=== PATIENT | female | born 1985 | race Two or more races ===

== ENCOUNTER 2017-04-25 15:26 | Emergency (ER) | payer MEDICAID ==
[~2017-04-25] VITALS: Ht 162.6 cm; Wt 57.6 kg
[~2017-04-25 15:26] MED LIST: REGLAN5 MG ORAL
[2017-04-25] MEDS ORDERED: HYDROcodone/Acetamin 7.5/325 tab ORAL ONE (16:00)
--- NOTE | 2017-04-25 16:04 | Emergency Room Report ---
History of Present Illness General Chief Complaint: To Be Triaged Present Illness HPI 32 YO Female presents to the ED C/O left wrist pain and right knee and thigh pain s/p mechanical fall while walking out side of her house just [employer]. pt. reports open wound, does not know when her last Tetanus vaccination was. pt. reports pain as 10/10 in severity localized and exacerbated with bending the right knee, standing, walking or palpation. pt. reports taking Amoxicillin and Mooers as she just had tooth removed two days ago. Denies fevers or chills. Pt. reports decreased oral intake due to recent oral procedure. Denies numbness tingling or loss of sensation or gross motor movements of the extremities, incontinence of bowel or bladder. Denies CP, Palpitations, LOC, AMS, dizziness, Changes in Vision, Sensation, paresthesias, or a sudden severe headache. Allergies: Coded Allergies: No Known Allergies (Unverified , 12/23/14) Patient History Past Medical History: see triage record Past Surgical History: none Pertinent Family History: none Reviewed Nursing Documentation: PMH: Agreed, PSxH: Agreed Review of Systems All Other Systems: negative except mentioned in HPI Physical Exam Sp02 EP Interpretation: reviewed, normal General Appearance: alert, GCS 15, non-toxic, mild distress Head: normocephalic, atraumatic Eyes: bilateral eye normal inspection, bilateral eye PERRL ENT: hearing grossly normal, normal voice Neck: full range of motion, no meningismus, no bony tend Respiratory: chest non-tender, lungs clear, normal breath sounds, speaking full sentences Cardiovascular #1: regular rate, rhythm, no edema, normal capillary refill Musculoskeletal: back normal, gait/station normal, normal range of motion, tender - LEft wrist, right knee, and lateral thigh. swelling noted only on the left wrist, with abrasion on back of hand. Neurologic: alert, oriented x3, responsive, motor strength/tone normal, sensory intact, speech normal, grossly normal Psychiatric: judgement/insight normal Skin: normal color, no rash, warm/dry, well hydrated, abrasions - back of the left hand. Lymphatic: no adenopathy Medical Decision Making PA Attestation Dr. schaefer is my supervising Physician whom patient management has been discussed with. Diagnostic Impression: Primary Impression: Left wrist sprain Qualified Codes: S63.502A - Unspecified sprain of left wrist, initial encounter Additional Impressions: Contusion Qualified Codes: S80.11XA - Contusion of right lower leg, initial encounter Right knee sprain Qualified Codes: S83.91XA - Sprain of unspecified site of right knee, initial encounter ER Course 32 YO Female presents to the ED C/O left wrist pain and right knee and thigh pain s/p mechanical fall while walking out side of her house just [employer]. pt. reports open wound, does not know when her last Tetanus vaccination was. pt. reports pain as 10/10 in severity localized and exacerbated with bending the right knee, standing, walking or palpation. pt. reports taking Amoxicillin and Mooers as she just had tooth removed two days ago. Denies fevers or chills. Pt. reports decreased oral intake due to recent oral procedure. Denies numbness tingling or loss of sensation or gross motor movements of the extremities, incontinence of bowel or bladder. Denies CP, Palpitations, LOC, AMS, dizziness, Changes in Vision, Sensation, paresthesias, or a sudden severe headache. Ddx considered but are not limited to Fracture, dislocation, contusion, Sprain/ Strain/Spasm, cerebellar pathology, hypovolemia, infection just to name few. Vital signs: are WNL, pt. is afebrile H&PE are most consistent with musculoskeletal injury will perform imaging to r/ o fractures/dislocations. ORDERS: - X-rays: Left wrist, Right knee-- all negative ED INTERVENTIONS: -wound cleaning by RN - Bacitracin and sterile dressing applied by RN. - Left wrist Splint applied by field service tech. Pt. remains neurovascularly intact. --Patient is provided with crutches and instructed on their use DISCHARGE: At this time pt. is stable for d/c to home. Will provide printed patient care instructions, and any necessary prescriptions. Care plan and follow up instructions have been discussed with the patient prior to discharge. Other X-Ray Diagnostic Results Other X-Ray Diagnostic Results #1: X-Ray ordered: Left wrist 3 views # of Views/Limited Vs Complete: 3 View Indication: Pain EP Interpretation: Yes PA Xray: Interpretation reviewed, by supervising MD, and agrees with findings. Interpretation: no dislocation, no soft tissue swelling Impression: No acute disease Electronically Signed by: Rebeca Pool PA-C Other X-Ray Diagnostic Results #2: X-Ray ordered: Right Knee # of Views/Limited Vs Complete: 3 View Indication: Pain EP Interpretation: Yes PA Xray: Interpretation reviewed, by supervising MD, and agrees with findings. Interpretation: no dislocation, no soft tissue swelling, no fractures Impression: No acute disease Electronically Signed by: Rebeca Pool PA-C Disposition: HOME, SELF-CARE Condition: Stable Scripts Bacitracin/Polymyxin B Sulfate (BACITRACIN-POLYMYXIN OINTMENT) 28.35 Gm Oint...g. 1 APPLIC TP BID, #28.3 GM Prov: Rebeca Pool 04/25/17 Ibuprofen* (MOTRIN*) 600 Mg Tablet 600 MG ORAL THREE TIMES A DAY, #20 TAB 0 Refills Prov: Rebeca Pool 04/25/17 Patient Instructions: Contusion, Bean-go-Tsih, Knee Sprain, Wrist Sprain Additional Instructions: Take medications as directed. Follow up with a Primary Care Provider in 3-5 days, even if your symptoms have resolved. --Please review list of primary care clinics, if you do not already have a primary care provider Return sooner to ED if new symptoms occur, or current symptoms become worse. Do not drink alcohol, drive, or operate heavy machinery while taking [ ] as this may cause drowsiness. - Please note that this Emergency Department Report was dictated using [employer] apprentice technology software, occasionally this can lead to erroneous entry secondary to interpretation by the dictation equipment. Rebeca Pool Apr 25, 2017 16:04
[2017-04-25] MEDS ORDERED: Tetanus/Diptheria/Pertussis Vaccine 0.5ml Syr IM ONE (16:15)
[2017-04-25] MEDS ORDERED: Bacitracin Oint UD TOPIC ONE (16:30)
[2017-04-25] MEDS ORDERED: BACITRACIN-P28.35 GM TP (17:02)
[2017-04-25] MEDS ORDERED: IBUPROFEN600 MG ORAL (17:02)
[2017-04-25 17:47] VITALS: BP 116/81
--- NOTE | 2017-04-26 12:05 | Diagnostic Imaging Report ---
Indication: Pain left wrist pain Findings: 3 views of the left wrist were obtained. No acute fractures, malalignment, erosions or periostitis are identified. Soft tissues are unremarkable. Impression: No acute findings.
--- NOTE | 2017-04-26 12:06 | Diagnostic Imaging Report ---
Indication: Pain Knee pain/trauma 3 views of the right knee were obtained. Findings: No acute fracture, malalignment, or joint effusion are identified. Joint space is relatively well-maintained. Impression: Negative for acute findings.
== END 2017-04-25 17:47 | disposition home or self-care (01) ==
LOC: EMR 16:00
DX: S63.502A Unspecified sprain of left wrist, initial encounter (principal); S80.11XA Contusion of right lower leg, initial encounter; S83.91XA Sprain of unspecified site of right knee, initial encounter; S60.512A Abrasion of left hand, initial encounter; Z23 Encounter for immunization; W01.0XXA Fall on same level from slipping, tripping and stumbling without subsequent striking against object, initial encounter; Y93.01 Activity, walking, marching and hiking; Y92.009 Unspecified place in unspecified non-institutional (private) residence as the place of occurrence of the external cause
CPT/HCPCS: 29260; 90471; 90715; 99284